=== PATIENT | female | born 1985 | race Caucasian/White ===

== ENCOUNTER → 2024-07-13 14:43 | Outpatient (REF) | payer OTHER, SELFPAY | LOC: RAD 14:43 | PROVIDERS: ATTENDING PHYSICIAN Registered Nurse | DX: R23.3 Spontaneous ecchymoses (principal); R22.42 Localized swelling, mass and lump, left lower limb; R76.0 Raised antibody titer | CPT/HCPCS: 93971 ==

== ENCOUNTER → 2024-08-05 13:10 | Outpatient (REF) | payer OTHER, SELFPAY | LOC: RCS 13:10 | PROVIDERS: ATTENDING PHYSICIAN Internal Medicine Cardiovascular Disease; FAMILY PHYSICIAN Registered Nurse | DX: R00.2 Palpitations (principal); R94.31 Abnormal electrocardiogram [ECG] [EKG] | CPT/HCPCS: 93005 ==

== ENCOUNTER → 2025-03-14 13:29 | Outpatient (REF) | payer OTHER, SELFPAY | LOC: HWWDC 13:29 | PROVIDERS: ATTENDING PHYSICIAN Registered Nurse; REFERRING PHYSICIAN Obstetrics & Gynecology Gynecology | DX: Z12.31 Encounter for screening mammogram for malignant neoplasm of breast (principal) | CPT/HCPCS: 77063; 77067 ==